=== PATIENT | female | born 1995 | race American Indian/Alaskan Native ===

== ENCOUNTER 2017-07-21 23:27 | Outpatient (CLI) | payer MEDICAID ==
[2017-07-22] VITALS: BP 94/62
== END 2017-07-22 02:38 | disposition home or self-care (01) ==
LOC: TRG 23:27
PROVIDERS: ATTEND Obstetrics & Gynecology
DX: O62.9 Abnormality of forces of labor, unspecified (principal); Z87.891 Personal history of nicotine dependence; Z3A.39 39 weeks gestation of pregnancy
CPT/HCPCS: 59025

== ENCOUNTER 2020-10-20 22:48 | Outpatient (CLI) | payer MEDICAID ==
[2020-10-20] MEDS ORDERED: LACTATED RINGERS 1,000 ML ONE (23:04)
[2020-10-20] MEDS ORDERED: LACTATED RINGERS 500 ML IV ONE (23:05)
[2020-10-20 23:11] VITALS: BP 119/63
[2020-10-20] MEDS ORDERED: LACTATED RINGERS 1000 ML IV SOLN IV SCH (23:45)
[2020-10-20] MEDS ORDERED: ACETAMINOPHEN 500 MG TAB PO ONE (23:51)
[2020-10-21 00:10] LABS: Bilirubin,Urine NEG (Negative); Blood,Urine NEG (Negative); Color,Urine Yellow (Yellow); Mucus,Urine 3+ /HPF
== END 2020-10-21 00:22 | disposition home or self-care (01) ==
LOC: TRG 22:48 → APU 22:57 → TRG 10-21 00:22
PROVIDERS: ATTEND Obstetrics & Gynecology
DX: O62.9 Abnormality of forces of labor, unspecified (principal); O26.892 Other specified pregnancy related conditions, second trimester; R10.30 Lower abdominal pain, unspecified; W50.0XXA Accidental hit or strike by another person, initial encounter; Y93.89 Activity, other specified; Y92.89 Other specified places as the place of occurrence of the external cause; Y99.0 Civilian activity done for income or pay
CPT/HCPCS: 59025; 81001; J7120; 96361